=== PATIENT | male | born 1955 | race Caucasian/White ===

== ENCOUNTER 2016-07-28 11:29 | Inpatient (IN) | payer OTHER ==
[~2016-07-28] VITALS: Ht 170.2 cm; Wt 90.7 kg
--- NOTE | ~2016-07-28 | EKG ---
[address] [address] ELECTROCARDIOGRAM REPORT Name: HAYDEN BUSTILLOS Room #: 448-P ADM IN M.R.#: [id number] Admission: 07/28/16 Attend Phys: Gucci Donohue DO Discharge: Date of : 55 Report #: [id number] THIS REPORT FOR: //name// [facility] ED Test Date: 2016-07-28 Test Time: 12:11:32 Pat Name: HAYDEN BUSTILLOS Department: Room: [facility] Gender: M Summer Law Associate: jackie : 1955 Requested By: Imani Martinez Order Number: [id number] MD: Vickey Adler Measurements Intervals [place] Rate: 83 P: 58 SD: 148 QRS: 34 QRSD: 77 T: 44 QT: 363 QTc: 427 Interpretive Statements Sinus rhythm No significant abnormality No previous ECG available for comparison Electronically Signed On 07-29-2016 8:17:57 CDT by Vickey Adler [email or web address] <ELECTRONICALLY SIGNED> By: Vickey Adler MD, [facility] 07/29/16 0817 1211 1211 Vickey Adler MD, FACC /EPI
--- NOTE | ~2016-07-28 | CNG ---
[facility] [place] [address] CYTO-NONGYN REPORT PROCEDURE Name: HAYDEN LAND Room #: 448-[facility] IN M.R.#: [id number] Admission: 07/28/16 Date of : 55 Discharge: 07/29/16 Report #: [id number] Path Case #: [id number] CYTOPATHOLOGY REPORT COLLECTION DATE: 07/29/2016 RECEIVED DATE: 07/29/2016 SUBMITTING PHYS: Dr. Tim Prince OTHER PHYS: Dr. Abdulkadir Sutton CLINICAL HISTORY: Increasing SOA. See also [id number] (foreign body) SPECIMEN(S) RECEIVED: A.Bronchoalveolar lavage, RLL * * * * * * * * * * * * FINAL DIAGNOSIS: A. RLL, Bronchoalveolar lavage: - No malignant cells identified. Predominantly marked acute inflammation with bronchial epithelial cells and alveolar macrophages identified. PATHOLOGIST: Mckayla Mcclelland M.D. REPORT ELECTRONICALLY SIGNED BY: Mckayla Mcclelland M.D. DATE/TIME: 07/30/2016 13:07 * * * * * * * * * * * * GROSS PATHOLOGY: A. Bronchoalveolar lavage, RLL: The specimen is submitted unfixed, labeled "[place]". Received by the Cytology Department is fifteen mL of cloudy pink fluid. One ThinPrep slide was prepared. (mm 07.29.2016) FORMING TUBE SELECTOR(S): Holli Shah, CT(ASCP), IAC INITIAL CPT CODE(S): A; 46668 Professional services performed by [facility] at [facility] [address], [place] [address] Technical services performed by [facility] at [address] [place] [address]., [address], [place] [address]. [facility] [address] [place] [address], [address] [place], [place] [address] [place] [address] [place] [address] CYTO-NONGYN REPORT PROCEDURE Name: HAYDEN LAND [facility] Room #: 448-P [facility] IN M.R.#: [id number] Admission: 07/28/16 Date of : 55 Discharge: 07/29/16 Report #: [id number] Path Case #: [id number] PHONE: [phone] DIRECTOR: Teo Tobar M.D. * * * END OF REPORT * * *
--- NOTE | ~2016-07-28 | HC ---
[facility] [place] [address] CONSULTATION Name: HAYDEN BUSTILLOS Room #: 448-P [facility] IN M.R.#: [id number] Admission: 07/28/16 Attend Phys: Gucci Donohue DO Discharge: 07/29/16 Date of : 55 Report #: [id number] THIS REPORT FOR: //name// CC: Steven Donohue DATE OF SERVICE: 07/28/2016 REFERRING PROVIDER: Myrtle Kuhn, Emergency Department. PRIMARY PHYSICIAN: Dr. Alexander Nicolas. REASON FOR CONSULTATION: Probable foreign object aspiration, shortness of breath, asthma exacerbation. CHIEF COMPLAINT: Shortness of breath, chest pain and foreign body aspiration. HISTORY OF PRESENT ILLNESS: I was asked to see the patient in consultation while in the emergency department. He was in emergency room 3 at the time of my evaluation, presents with a friend. He is a 61-year-old male with a past medical history most significant for persistent asthma, typically uses p.r.n. albuterol as well as having p.r.n. prednisone as well as Advair. He had been in his usual state of health, was busy doing some sort of landscaping and grabbed his pocket rescue inhaler and went to inhale and realized that he aspirated some foreign objects. He was not clear what they were, he thinks it may be a 20-mg prednisone tablet and perhaps a straw paper wrapper. The patient noted some coughing, immediately after increasing shortness of breath, right-sided chest discomfort, notes difficulty taking a full breath and notes wheezing at this time, is now coughing up thick white secretions. Denies any fevers or chills. Dyspnea has not been getting better with use of home prednisone daily and albuterol inhaler. In fact, he had been worsening and presented to the emergency department. No significant hemoptysis noted. Long after his initial aspiration when he believes he may have coughed up a small piece of either plastic or paper. Currently, he is in ER room 3, no distress, but appears a little anxious. ALLERGIES: None known. PAST MEDICAL HISTORY: 1. History of asthma. 2. History of anaphylactic reaction of unknown cause causing respiratory arrest, requiring mechanical ventilation. 3. History of compressed disc injury in the neck, status post surgery 2 years ago. OUTPATIENT MEDICATIONS: Include prednisone, Advair 115/21 two puffs twice daily [facility] [address] [place] [address] CONSULTATION Name: HAYDEN BUSTILLOS Room #: 448-P [facility] IN M.R.#: [id number] Admission: 07/28/16 Attend Phys: Gucci Donohue DO Discharge: 07/29/16 Date of : 55 Report #: [id number] and albuterol and Combivent inhaler. 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 FAMILY HISTORY: Noncontributory. REVIEW OF SYSTEMS: Except as described in the HPI are normal. PHYSICAL EXAMINATION: VITAL SIGNS: Afebrile, pulse 80s, respiratory rate 20, blood pressure is 136/75, oxygen saturation 93% on room air. GENERAL: This is an obese, middle-aged male, does not appear in any distress, but somewhat anxious. ENT: Clear oropharynx, Mallampati 3 airway. NECK: Supple, no lymphadenopathy. LUNGS: Right-sided focal wheezes over the right lower chest with some scattered other wheezes, no crackles noted, respirations nonlabored. CARDIOVASCULAR: Heart regular. No murmurs or gallops. ABDOMEN: Soft, obese, nontender, no masses. EXTREMITIES: Without edema. INTEGUMENT: Revealed some brawny sun discoloration. LABORATORY DATA: White blood cell count 12,000, hemoglobin 16, hematocrit 45, platelet count 181. Sodium 142, potassium 3.6, chloride 106, bicarbonate 27, BUN 23, creatinine 1.4, glucose 118. Troponin normal, albumin normal. Chest x-ray reveals what appears to be some atelectasis or infiltrate in the posterior and right lower lung, maybe early infiltrate or atelectasis. IMPRESSION: 1. Likely foreign object aspiration causing some right lower lobe atelectasis or pneumonitis, less likely patient expectorated foreign object and has some early pneumonia present. 2. Right lower lobe pneumonia as evidenced by early infiltrate on chest x-ray and leukocytosis and ____ cough per patient. 3. History of asthma with acute exacerbation. 4. History of chronic pain. SUGGESTIONS: 1. The patient will need further airway evaluation with fiberoptic bronchoscopy. Given the possibility of need to retrieve a foreign object, the patient should be done under general endotracheal anesthesia. We will consult anesthesia service and schedule for later today. The patient ate earlier today at 10:00 relatively a sizeable meal. We will have to do later this afternoon. 2. Begin Zosyn. 3. Systemic steroids with taper. [address] [address] CONSULTATION Name: HAYDEN BUSTILLOS Room #: 448-P DIS IN M.R.#: [id number] Admission: 07/28/16 Attend Phys: Gucci Donohue DO Discharge: 07/29/16 Date of : 55 Report #: [id number] 4. Frequent bronchodilators. 5. I suggest admit to at least overnight stay for 23-hour observation depending on findings at airway evaluation. 6. We will follow along with you. Thank you for requesting our suggestions. By: [id number] Tim Prince MD /mariano
--- NOTE | ~2016-07-28 | P ---
[facility] [place] [address] PROCEDURE REPORT Name: HAYDEN BUSTILLOS Room #: 448-P ADM IN M.R.#: [id number] Admission: 07/28/16 Attend Phys: Moo Larsen MD Discharge: Date of : 55 Report #: [id number] THIS REPORT FOR: //name// CC: Steven Sutton MD DATE OF SERVICE: 07/28/2016 PROCEDURE: Fiberoptic bronchoscopy with removal of foreign object under general endotracheal anesthesia. INDICATION: Aspiration of foreign object with infiltrative change on x-ray, worrisome for post-obstructive pneumonia, ASA classification class 2. PROCEDURE NOTATION: After discussing the risks and benefits of planned procedure with the patient, he desired to proceed. After obtaining informed consent, he was brought to the OR room 1, where he was placed under general endotracheal anesthesia by the anesthesia service. Please see their notes for details. Once intubated with an 8.5 endotracheal tube, a standard white light bronchoscope was advanced through the endotracheal tube until the distal trachea was seen. There was some erythema in the distal trachea. 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 Main findings were significant edema of the right upper lobe and a foreign object sitting in the right bronchus intermediate that obstructed view. In the right middle and lower lobe bronchi there was also white mucopurulent secretion coming from the bronchus intermedius as well. Standard forceps were advanced and the foreign object was easily grasp and removed through the endotracheal tube. The foreign object appeared to be a wadded up straw wrapper. Bronchoscope was then readvanced through the endotracheal tube where the middle and lower lobe bronchi and subsegmental bronchi were explored. There was significant erythema and edema and some erosions, but no other significant disease outside of mucopurulent secretions. Bronchioalveolar lavage was then performed through the bronchus intermedius and sent for microbiologic and cytologic tests. The patient tolerated well. No noted complications. The patient was extubated and coming to recovery room at the time of this dictation. IMPRESSION: 1. Foreign body aspiration right bronchus intermedius consistent with aspirated wadded straw wrapper with right middle lobe pneumonia as a consequence. 2. Asthma. RECOMMENDATIONS: 1. Await microbiologic tests. 2. Continue to observe overnight. 3. Continue with systemic steroids, bronchodilators and Zosyn. [address] [address] PROCEDURE REPORT Name: HAYDEN BUSTILLOS Room #: 448-P [facility] IN .R.#: [id number] Admission: 07/28/16 Attend Phys: Moo Larsen MD Discharge: Date of : 55 Report #: [id number] 4. Await cultures from bronchioalveolar lavage. 5. Stable post-procedure back to his critical care telemetry room for further monitoring. By: [id number] Tim Prince MD /mariano
--- NOTE | ~2016-07-28 | S ---
[facility] [place] [address] SURGICAL PATH RPT PROCEDURE Name: HAYDEN BUSTILLOS Room #: 448-P DIS IN M.R.#: [id number] Admission: 07/28/16 Date of : 55 Discharge: 07/29/16 Report #: [id number] Path Case #: [id number] PATHOLOGY REPORT COLLECTION DATE: 07/28/2016 RECEIVED DATE: 07/29/2016 SUBMITTING PHYS: Dr. Tim Prince OTHER PHYS: Dr. Steven Sutton SPECIMEN(S) RECEIVED: A.Foreign body removed from R bronchus intermedius * * * * * * * * * * * * FINAL DIAGNOSIS: A. Foreign body removed from right bronchus intermedius, removal: - 10.1 cm paper-like material (GROSS EXAM ONLY) (IUV; 07/30/16) PATHOLOGIST: Mckayla Mcclelland M.D. REPORT ELECTRONICALLY SIGNED BY: Mckayla Mcclelland M.D. DATE/TIME: 07/30/2016 12:57 * * * * * * * * * * * * GROSS PATHOLOGY: The specimen is received in formalin, labeled "[place], right bronchus intermedius foreign body." Received is a segment of white paper-like material measuring 10.1 x 1.1 x 0.3 cm in greatest dimensions. A gross photograph is taken. No sections are submitted. (KAH; 07/30/2016) CLINICAL HISTORY: Possible aspiration, increasing S OA INITIAL CPT CODE(S): A; 41094 Professional services performed by [facility] at [facility] [address], [place] [address] Technical services performed by [facility] at [address] [place] [address], [address] [address]. [facility] [address] [place] [address] SURGICAL PATH RPT PROCEDURE Name: HAYDEN BUSTILLOS Room #: 448-P [facility] IN M.R.#: [id number] Admission: 07/28/16 Date of : 55 Discharge: 07/29/16 Report #: [id number] Path Case #: [id number] [facility] [address] [address] PHONE: [phone] DIRECTOR: Teo Tobar M.D. * * * END OF REPORT * * *
[2016-07-28 11:29] VITALS: BP 181/90
[~2016-07-28 11:29] MED LIST: COMBIVENT; HYDROCODONE-AP1 EAC6 PO
[2016-07-28] MEDS ORDERED: ADVAIR HFA115 MCG/21 INH (11:49)
[2016-07-28] MEDS ORDERED: PREDNISONE 20 M20 MG PO (11:49)
[2016-07-28 12:12] LABS: ABSOLUTE NEUTROPHILS 10.9 thou/uL (1.4-8.2); BASOPHILS 0.5 % (0.0-2.0); EOSINOPHILS 0.1 % (0.0-3.0); HEMATOCRIT 45.8 % (42.0-52.0); HEMOGLOBIN 16.2 gm/dL (14.0-18.0); LYMPHOCYTES 7.6 % (24.0-44.0); MCH 32.6 pg (26.0-34.0); MCHC 35.5 g/dL (28.0-37.0); MONOCYTES 4.3 % (1.0-8.0); PLATELET COUNT 181 thou/uL (150-400); POLYS 87.5 % (36.0-66.0); RBC 4.97 mil/uL (4.50-6.00); RDW 12.9 % (10.5-14.5); WBC 12.4 thou/uL (4.0-11.0)
[2016-07-28 12:14] LABS: MANUAL DIFF NO
[2016-07-28 12:21] LABS: ANION GAP 9 mmol/L (7-16); BUN 23 mg/dL (7-18); CALCIUM 8.2 mg/dL (8.5-10.1); CHLORIDE 106 mmol/L (98-107); CO2 27 mmol/L (21-32); CREATININE 1.4 mg/dL (0.7-1.3); GLUCOSE 118 mg/dL (74-106); POTASSIUM 3.6 mmol/L (3.5-5.1); SODIUM 142 mmol/L (136-145)
[2016-07-28 12:28] LABS: ALKALINE PHOSPHATASE 70 U/L (46-116); SGOT 27 U/L (15-37); SGPT 47 U/L (30-65); TOTAL BILIRUBIN 0.9 mg/dL (<0.1-1.0); TOTAL PROTEIN 7.3 g/dL (6.4-8.2); TROPONIN-I < 0.04 ng/mL (<0.04-0.07)
[2016-07-28 16:15] VITALS: BP 132/84
[2016-07-28 17:06] VITALS: BP 152/75
[2016-07-28 20:24] VITALS: BP 123/76
[2016-07-28 21:17] VITALS: BP 122/74
[2016-07-28 23:53] VITALS: BP 118/69
[2016-07-29 05:10] VITALS: BP 115/68
[2016-07-29 06:28] LABS: HEMATOCRIT 43.6 % (42.0-52.0); HEMOGLOBIN 15.1 gm/dL (14.0-18.0); MCH 32.1 pg (26.0-34.0); MCHC 34.6 g/dL (28.0-37.0); MCV 92.8 fL (80.0-100.0); PLATELET COUNT 174 thou/uL (150-400); RDW 13.1 % (10.5-14.5)
[2016-07-29 06:33] LABS: MANUAL DIFF YES
[2016-07-29 06:44] LABS: ALBUMIN 3.4 g/dL (3.4-5.0); CREATININE 1.2 mg/dL (0.7-1.3); POTASSIUM 3.5 mmol/L (3.5-5.1); TOTAL BILIRUBIN 0.7 mg/dL (<0.1-1.0); TOTAL PROTEIN 6.5 g/dL (6.4-8.2)
[2016-07-29 06:53] LABS: MAGNESIUM 2.2 mg/dL (1.8-2.4)
[2016-07-29 09:26] LABS: ABSOLUTE NEUTROPHILS 11.1 thou/uL (1.4-8.2); PLATELET ESTIMATE NORMAL; TOTAL CELL COUNT 100
[2016-07-29] MEDS ORDERED: AUGMENTIN 875875 MG PO (09:36)
[2016-07-29 09:50] VITALS: BP 115/68
== END 2016-07-29 10:37 | disposition home or self-care (01) | DRG 871 ==
LOC: ER 11:29 → 4S 13:27 → EROBS 13:27 → 4S 16:16
PROVIDERS: Nurse Practitioner; Physician Assistant
PROC: 0BC58ZZ Extirpation of Matter from Right Middle Lobe Bronchus, Via Natural or Artificial Opening Endoscopic (ICD-10-PCS; principal; 2016-07-28)
DX: A41.9 Sepsis, unspecified organism (principal); J18.9 Pneumonia, unspecified organism; T17.890A Other foreign object in other parts of respiratory tract causing asphyxiation, initial encounter; N17.9 Acute kidney failure, unspecified; G89.29 Other chronic pain; D72.829 Elevated white blood cell count, unspecified; J45.909 Unspecified asthma, uncomplicated; X58.XXXA Exposure to other specified factors, initial encounter; Y93.89 Activity, other specified; Y92.89 Other specified places as the place of occurrence of the external cause; Y99.8 Other external cause status
CPT/HCPCS: 10100; 62110; 62900; 64037; 70005

== ENCOUNTER 2019-06-22 15:42 | Emergency (ER) | payer OTHER ==
[~2019-06-22] VITALS: Ht 170.2 cm; Wt 88.5 kg
[~2019-06-22 15:42] MED LIST changes: +ADVAIR HFA115 MCG/21 INH; +AUGMENTIN 875875 MG PO; +KEFLEX500 M1 PO; +MOBIC15 MG PO; +PREDNISONE 20 M20 MG PO
[2019-06-22 17:05] LABS: ABSOLUTE NEUTROPHILS 3.5 thou/uL (1.4-8.2); BASOPHILS 0.7 % (0.0-2.0); EOSINOPHILS 1.1 % (0.0-3.0); HEMATOCRIT 48.7 % (42.0-52.0); HEMOGLOBIN 16.7 gm/dL (14.0-18.0); MCH 32.3 pg (26.0-34.0); MCHC 34.3 g/dL (28.0-37.0); MCV 94.2 fL (80.0-100.0); MONOCYTES 7.8 % (1.0-8.0); PLATELET COUNT 174 thou/uL (150-400); POLYS 70.4 % (36.0-66.0); RBC 5.17 mil/uL (4.50-6.00); RDW 12.7 % (10.5-14.5); WBC 4.9 thou/uL (4.0-11.0)
[2019-06-22 17:15] LABS: CREATININE 1.3 mg/dL (0.7-1.3); POTASSIUM 3.8 mmol/L (3.5-5.1)
[2019-06-22 19:18] VITALS: BP 175/84
[2019-06-22 21:49] LABS: HCO3 19.7 mmol/L (22.0-26.0); PCO2 VENOUS 32.8 mmHg (41.0-51.0); PO2 VENOUS 70.8 mmHg (35.0-45.0)
--- NOTE | 2019-06-23 09:55 | EKG ---
[facility] [place] [address] ELECTROCARDIOGRAM REPORT Name: HAYDEN BUSTILLOS Room #: DEP [facility]#: [id number] Admission: 06/22/19 Attend Phys: Discharge: 06/22/19 Date of : 55 Report #: [id number] THIS REPORT FOR: cc: DENNIS - Sofia family physician/PCP DENNIS - No family physician/PCP Mike Fosetr MD ~ THIS REPORT FOR: //name// [facility] ED Test Date: 2019-06-22 Test Time: 17:03:20 Pat Name: HAYDEN BUSTILLOS Department: Room: Gender: Nurse Instructor: : 1955 Requested By: Gisell Orellana Order Number: [id number] MD: Mike Foster Measurements Intervals [place] Rate: 61 P: 44 IN: 156 QRS: 21 QRSD: 72 T: 30 QT: 391 QTc: 394 Interpretive Statements Sinus rhythm Probable left atrial enlargement Compared to ECG 11/27/2017 14:31:07 No significant change Electronically Signed On 06-23-2019 9:53:57 CDT by Mike Foster [email or web address] <ELECTRONICALLY SIGNED> By: Mike Foster MD 06/23/19 0953 D: [id number] Mike Foster MD /YEN
== END 2019-06-22 22:45 | disposition home or self-care (01) ==
LOC: ER 15:42
PROVIDERS: Nurse Practitioner
DX: R06.02 Shortness of breath (principal); R07.89 Other chest pain; R68.83 Chills (without fever); F41.9 Anxiety disorder, unspecified; J44.9 Chronic obstructive pulmonary disease, unspecified; Z79.2 Long term (current) use of antibiotics; Z79.899 Other long term (current) drug therapy